=== PATIENT | female | born 1995 | race Hispanic/Latino ===

== ENCOUNTER 2017-06-08 18:47 | Emergency (ER) | payer SELFPAY | END 2017-06-08 19:18 | disposition home or self-care (01) | LOC: EDH 18:47 | DX: F41.1 Generalized anxiety disorder (principal); J45.909 Unspecified asthma, uncomplicated ==

== ENCOUNTER 2020-05-21 13:01 | Emergency (ER) | payer OTHER ==
[2020-05-21 14:11] LABS: APPEARANCE,URINE Clear (CLEAR); BILIRUBIN,URINE Negative (NEGATIVE); COLOR,URINE Yellow (YELLOW); GLUCOSE, URINE (UA) Negative (NEGATIVE); KETONES,URINE Trace mg/dL (NEGATIVE); LEUKOCYTE ESTERASE ,URINE Small (NEGATIVE); NITRATE,URINE Negative (NEGATIVE); OCCULT BLOOD,URINE Moderate (NEGATIVE); PH,URINE 8.5 (5.0-8.0); PROTEIN,URINE Trace mg/dL (NEGATIVE)
[2020-05-21 14:15] LABS: HCG,QUAL RESULT NEGATIVE (NEGATIVE)
[2020-05-21 14:18] LABS: BASOPHILS % (AUTO) 0.4 % (0.0-5.0); EOSINOPHILS % (AUTO) 0.1 % (0.0-8.0); HEMATOCRIT 39.2 % (36-48); LYMPHOCYTES % (AUTO) 9.7 % (21.0-51.0); MEAN CORPUSCULAR HEMOGLOBIN 28.4 pg (27.0-33.0); MEAN CORPUSCULAR HGB CONC 32.1 g/dL (32.0-36.0); MEAN CORPUSCULAR VOLUME 88.5 fL (79-99); MONOCYTES % (AUTO) 4.8 % (3.0-13.0); NEUTROPHILS % (AUTO) 84.7 % (40.0-77.0); PLATELET COUNT (AUTO) 483 K/uL (130-400); RED BLOOD CELL COUNT(AUTO) 4.43 MIL/uL (4.00-5.50); RED CELL DISTRIBUTION WIDTH 13.5 % (11.0-15.5); WHITE BLOOD COUNT (AUTO) 13.4 K/uL (4.8-10.8)
[2020-05-21 14:19] LABS: BACTERIA,URINE Few /HPF (None Seen); RBC,URINE 26-50 /HPF (0-1); SQUAMOUS EPITHELIAL CELL,UR 0-2 /HPF (0-2)
[2020-05-21] MEDS ORDERED: ONDANSETRON 4 MG TABLET ONE (14:27)
[2020-05-21] MEDS ORDERED: KETOROLAC TROMETHAMINE 30MG/ML ONE (14:27)
[2020-05-21] MEDS ORDERED: ACETAMINOPHEN 325 MG TAB ONE (14:27)
[2020-05-21 14:33] LABS: CREATININE 0.5 mg/dL (0.5-1.5); POTASSIUM 3.9 mmol/L (3.5-5.1)
[2020-05-21 14:36] LABS: ALBUMIN 3.8 g/dL (3.5-5.0); BILIRUBIN,TOTAL 0.3 mg/dL (0.2-1.0); TOTAL PROTEIN, SERUM 7.9 g/dL (6.0-8.3)
[2020-05-21] MEDS ORDERED: SODIUM CHLORIDE 0.9% 1000ML 1,000 ML IV ONE (15:50)
[2020-05-21] MEDS ORDERED: IOHEXOL-350 75 ML VIAL IV ONE (15:59)
== END 2020-05-21 17:27 | disposition home or self-care (01) ==
LOC: EDH 13:01
DX: N94.6 Dysmenorrhea, unspecified (principal); F41.1 Generalized anxiety disorder; R11.2 Nausea with vomiting, unspecified; R06.02 Shortness of breath; Z20.828 Contact with and (suspected) exposure to other viral communicable diseases; J45.909 Unspecified asthma, uncomplicated
CPT/HCPCS: 36415; 71045; 74018; 74177; 80053; 81001; 81025; 83690; 85025; 87426; 93005; 96361; 96374; 99285; J1885; J7030; Q0162; Q9967